=== PATIENT | female | born 1940 | race Caucasian/White ===

== ENCOUNTER → 2017-09-06 | Outpatient (CLI) | payer MEDICARE, OTHER | END | disposition home or self-care (01) | LOC: CFH 10:38 | PROVIDERS: ATTEND Internal Medicine | DX: Z12.31 Encounter for screening mammogram for malignant neoplasm of breast (principal); Z13.820 Encounter for screening for osteoporosis; E28.39 Other primary ovarian failure; Z78.0 Asymptomatic menopausal state | CPT/HCPCS: 77063; 77080; 77067 ==

== ENCOUNTER 2019-06-05 05:41 | Observation (INO) | payer MEDICARE, OTHER ==
[~2019-06-05] VITALS: Ht 162.6 cm; Wt 82.0 kg
[~2019-06-05 05:41] MED LIST: AMLO10TA8 PO; ATOR20TA37 PO; LEVO112T4 PO; TRAM50TA2 PO
[2019-06-05] MEDS ORDERED: LACTATED RINGERS 1,000 ML IV SCH (06:07)
[2019-06-05 06:09] VITALS: BP 142/77
[2019-06-05] MEDS ORDERED: GABAPENTIN 300 MG CAPSULE PO ONE (06:30)
[2019-06-05] MEDS ORDERED: SENNA/DOCUSATE TABLET PO PRN (06:30)
[2019-06-05] MEDS ORDERED: HYDROcodone/APAP 5/325 TABLET PO PRN (06:30)
[2019-06-05] MEDS ORDERED: MAGNESIUM HYDROXIDE 8%, 30ML UDC PO PRN (06:30)
[2019-06-05] MEDS ORDERED: ACETAMINOPHEN 650 MG/20.3 ML UDC PO PRN (06:30)
[2019-06-05] MEDS ORDERED: ONDANSETRON 2MG/ML, 2ML IV PRN (06:30)
[2019-06-05] MEDS ORDERED: ONDANSETRON 4 MG TABLET PO PRN (06:30)
[2019-06-05] MEDS ORDERED: OXYcodone IR 5MG TABLET PO PRN (06:30)
[2019-06-05] MEDS ORDERED: DIPHENHYDRAMINE 50 MG CAPSULE PO PRN (06:30)
[2019-06-05] MEDS ORDERED: ACETAMINOPHEN 500 MG TABLET PO ONE (06:30)
[2019-06-05] MEDS ORDERED: ZOLPIDEM 5MG TABLET PO PRN (06:30)
[2019-06-05] MEDS ORDERED: BISACODYL 10 MG SUPP PR PRN (06:30)
[2019-06-05] MEDS ORDERED: FENTANYL PF 100 MCG/2ML ONE ×2 (06:49→07:59)
[2019-06-05] MEDS ORDERED: PROPOFOL 10 MG/ML, 20ML ONE (06:49)
[2019-06-05] MEDS ORDERED: ROCURONIUM 10MG/ML,5ML ONE (06:49)
[2019-06-05] MEDS ORDERED: CEFAZOLIN 1,000 MG ONE (06:49)
[2019-06-05] MEDS ORDERED: DEXAMETHASONE 4 MG/ML, 1ML ONE (06:49)
[2019-06-05] MEDS ORDERED: ONDANSETRON 2MG/ML, 2ML ONE (06:49)
[2019-06-05] MEDS ORDERED: MIDAZOLAM 1 MG/ML, 5ML ONE (06:49)
[2019-06-05] MEDS ORDERED: SUCCINYLCHOLINE 20 MG/ML, 10ML ONE (06:49)
[2019-06-05] MEDS ORDERED: KETOROLAC 30 MG/1 ML IV PRN (07:30)
[2019-06-05] MEDS ORDERED: ALBUTEROL SULFATE 2.5 MG/3 ML NPPB PRN (07:30)
[2019-06-05] MEDS ORDERED: PROMETHAZINE 25 MG/ML, 1ML IV PRN (07:30)
[2019-06-05] MEDS ORDERED: LABETALOL 5MG/ML, 20ML IV PRN (07:30)
[2019-06-05] MEDS ORDERED: OXYcodone 5 MG/5 ML ORAL.SOL UDC PO PRN (07:30)
[2019-06-05] MEDS ORDERED: ONDANSETRON 2MG/ML, 2ML IVPush PRN (07:30)
[2019-06-05] MEDS ORDERED: HYDROmorphone 1 MG/ML, 1ML INJ IV PRN (07:30)
[2019-06-05] MEDS ORDERED: hydrALAzine 20 MG/ML, 1ML IV PRN (07:30)
[2019-06-05] MEDS ORDERED: DIAZEPAM 5 MG/ML, 2ML IV PRN ×2 (07:30)
[2019-06-05] MEDS ORDERED: MEPERIDINE/PF 25MG/0.5ML IVPush PRN (07:30)
[2019-06-05] MEDS ORDERED: METOCLOPRAMIDE 5 MG/ML, 2ML IV PRN (07:30)
[2019-06-05] MEDS: FENTANYL PF 100 MCG/2ML IV PRN ×2 (08:02→08:08)
[2019-06-05] MEDS ORDERED: OXYcodone 5 MG/5 ML ORAL.SOL UDC ONE (08:13)
[2019-06-05] MEDS ORDERED: MEPERIDINE/PF 25MG/ML,1ML ONE (08:22)
[2019-06-05 09:30] VITALS: BP 121/64
[2019-06-05] MEDS: AMLODIPINE 10 MG TAB PO SCH (09:30)
[2019-06-05] MEDS: LEVOTHYROXINE 112 MCG TABLET PO SCH ×2 (09:30→14:03)
[2019-06-05] MEDS: NS + 20MEQ KCL 1,000 ML IV SCH ×2 (11:05→22:30)
[2019-06-05 13:46] VITALS: BP 114/58
[2019-06-05] MEDS: DOCUSATE 100 MG CAPSULE PO SCH ×2 (14:01→20:11)
[2019-06-05] MEDS: CEFAZOLIN PMX 2GM/50ML 50 ML IVPB SCH ×2 (14:02→22:03)
[2019-06-05] MEDS: ASPIRIN 81 MG TABLET EC PO SCH (17:51)
[2019-06-05 18:50] VITALS: BP 119/53
[2019-06-05] MEDS: ATORVASTATIN 20 MG TABLET PO SCH (20:11)
[2019-06-05 23:38] VITALS: BP 104/56
[2019-06-06 00:58] VITALS: BP 104/56
[2019-06-06 03:37] VITALS: BP 102/46
[2019-06-06] MEDS: ASPIRIN 81 MG TABLET EC PO SCH (05:03)
[2019-06-06] MEDS ORDERED: DEXAMETHASONE 4 MG/ML, 1ML IVPush SCH (06:00)
[2019-06-06 06:26] VITALS: BP 115/57
[2019-06-06] MEDS ORDERED: MELO7.5T31 PO (08:40)
[2019-06-06] MEDS ORDERED: TRAM50TA2 PO (08:41)
[2019-06-06] MEDS ORDERED: OXYC5TAB3 PO (08:43)
[2019-06-06] MEDS: DOCUSATE 100 MG CAPSULE PO SCH (09:14)
[2019-06-06] MEDS: ATORVASTATIN 20 MG TABLET PO SCH (09:14)
[2019-06-06] MEDS: AMLODIPINE 10 MG TAB PO SCH (09:15)
[2019-06-06] MEDS ORDERED: MUPIROCIN OINT 2%, 1 GM APPL. TP SCH (10:30)
[2019-06-06] MEDS: NS + 20MEQ KCL 1,000 ML IV SCH (11:00)
[2019-06-06] MEDS ORDERED: MUPIROCIN OINT 2%, 22GM TP SCH (16:00)
== END 2019-06-06 11:45 | disposition home or self-care (01) ==
LOC: OUT 05:41 → 4NE 09:28 → OUT 20:54 → 4NE 20:55
PROVIDERS: ADMIT Orthopaedic Surgery; ATTEND Orthopaedic Surgery
DX: M16.11 Unilateral primary osteoarthritis, right hip (principal); Z79.899 Other long term (current) drug therapy
CPT/HCPCS: 27130; 36415; 73501; 73523; 76000; 85014; 85018; 87081; 96365; 96366; 96375; 97161; 97165; C1713; C1776; G0378; J0171; J0330; J0690; J1100; J1885; J2175; J2250; J2405; J2704; J2795; J3010; J3370; J3480; J7120

== ENCOUNTER → 2020-06-16 | Outpatient (CLI) | payer MEDICARE, OTHER ==
[~2020-06-16] MED LIST changes: +AMLO-211 PO; -AMLO10TA8 PO; +MELO7.5T31 PO; +OXYC5TAB98 PO
== END | disposition home or self-care (01) ==
LOC: CFH 09:40
PROVIDERS: ATTEND Family Medicine
DX: Z12.31 Encounter for screening mammogram for malignant neoplasm of breast (principal)
CPT/HCPCS: 77063; 77067